=== PATIENT | female | born 1985 | race Caucasian/White ===

== ENCOUNTER → 2016-09-24 | Outpatient (CLI) | payer OTHER ==
[~2016-09-24] MED LIST: CRG125 PO; CYCL10TA6 PO; IMT100 PO; LSX20 PO; NORT10CA PO; PEDICHW44 PO; PRZ/40 PO; TRAZ50TA35 PO
== END | disposition home or self-care (01) ==
LOC: C.PAPS 10:11
PROVIDERS: ATTEND Obstetrics & Gynecology
DX: R87.610 Atypical squamous cells of undetermined significance on cytologic smear of cervix (ASC-US) (principal)

== ENCOUNTER → 2017-05-18 | Outpatient (CLI) | payer OTHER ==
[2017-05-18 17:31] LABS: BASO % 0.1 %; BASO ABS # 0.01 K/uL (0-0.2); COMPLETE YES; EOS % 1.5 %; IG% 0.3 %; LYMPH % 37.8 %; LYMPH ABS # 3.33 K/uL (1.2-3.4); MEAN CELL VOLUME 89.2 fL (80-100); MEAN CORPUSCULAR HGB CONC 34.8 g/dl (32-36); MEAN PLATELET VOLUME 9.3 fL (7.4-10.4); MONO % 4.2 %; NEUT % 56.1 %; PLATELET COUNT 210 K/uL (130-400); RED BLOOD COUNT 4.71 M/uL (4.2-5.4); WHITE BLOOD COUNT 8.81 K/uL (4.8-10.8)
[2017-05-18 17:41] LABS: INR 0.9 (0.9-1.1); PARTIAL THROMBOPLASTIN RATIO 1.1
[2017-05-18 17:59] LABS: BLOOD UREA NITROGEN 12 mg/dl (7-18); CREATININE 0.74 mg/dl (0.60-1.20); GLUCOSE 106 mg/dl (70-99)
[2017-05-18 18:00] LABS: BUN/CREATININE RATIO 15.9 (10-20); CALCIUM 8.8 mg/dl (8.5-10.1); CARBON DIOXIDE 28 mmol/L (21-32); CHLORIDE 109 mmol/L (98-107); POTASSIUM 4.2 mmol/L (3.5-5.1); SODIUM 144 mmol/L (136-145)
== END | disposition home or self-care (01) ==
LOC: C.LAB 16:58
PROVIDERS: ATTEND Family Medicine
DX: R23.8 Other skin changes (principal)

== ENCOUNTER 2017-06-11 14:54 | Observation (INO) | payer OTHER ==
[~2017-06-11] VITALS: Ht 172.7 cm; Wt 96.2 kg
[~2017-06-11 14:54] MED LIST changes: -CRG125 PO; -CYCL10TA6 PO; -IMT100 PO; -LSX20 PO; -PEDICHW44 PO
--- NOTE | 2017-06-11 15:26 | EMERGENCY ROOM VISIT NOTE ---
History First contact with patient: 15:01 Chief Complaint: HYPERTENSION Stated Complaint: HIGH BLOOD PRESSURE;DIZZY History of Present Illness The patient is a 32 year old female who presents to the Emergency Room With complaints of"high blood pressure/dizzy". The patient states that 20 minutes prior to arrival she was in the lab, and felt a sudden onset of dizziness, and left arm tingling sensation. She states that they checked her blood pressure and it was found to be elevated at 178/115, and 176/118 respectively. She states that she also has a headache in the frontal portion of her head. She doesn't that earlier in the day she did have a 8 sensation of pain between her shoulder blades. She states that she had this one other time but it did not hospitalist nocturnist physician to be anything. She has a history of fibromuscular dysplasia, and has a history of bilateral renal artery stenosis with stent placement performed and [facility]. She states that she also had initial shortness of breath but now her only remaining symptom is that of weakness generalized, and left arm tingly sensation. Her father has a significant history of SC, as well as her mother does have a significant cardiac history. She states that she takes her blood pressure medication regularly and is in the systolic 120s status post the surgery with the renal artery stenosis. She has been taking these as prescribed. She currently denies any chest pain. She denies any chance premises. There is been no speech or identifiable extremity weakness. Review of Systems A complete 10-point Review of Systems was discussed with the patient, with pertinent positives and negatives listed in the History of Present Illness. All remaining Review of Systems questions can be considered negative unless otherwise specified. Past Medical/Surgical History Medical Problems: (1) Ablation (2) Benign hypertension (3) Cholecystectomy (4) Hypertensive urgency (5) Kidney Catheter 2010 (6) Kidney stone (7) Polycystic Ovary Family History Diabetes mellitus FH: cancer FH: gallbladder disease FH: heart disease FH: lung disease Hypertension Kidney disease Kidney stones Seizures Social History Smoking Status: Never Smoker Alcohol Use: occasionally Drug Use: none Marital Status: Housing Status: lives with family Occupation Status: employed Current/Historical Medications Scheduled Aspirin (Aspirin EC Low Dose), 81 MG PO DAILY Carvedilol (Carvedilol), 12.5 MG PO BID Clopidogrel Bisulfate (Clopidogrel), 75 MG PO DAILY Cyclobenzaprine Hcl (Flexeril), 5 MG PO TID Pediatric Multiple Vitamins W/ (Flintstones Plus Iron), 1 TAB PO DAILY Sertraline HCl (Sertraline HCl), 100 MG PO DAILY Topiramate (Topamax), 50 MG PO HS Triamcinolone Acetonide (Topic (Triamcinolone Acet 0.025%), 1 APPLN TOP BID Scheduled PRN Albuterol Hfa (Ventolin Hfa), 2 PUFFS INH Q6H PRN for SOB/Wheezing Furosemide (Furosemide), 20 MG PO DAILY PRN for Fluid Retention Ondansetron Hcl (Zofran), 8 MG PO TID PRN for Nausea or Vomiting Sumatriptan Succinate (Imitrex), 100 MG PO UD PRN for Migraine Physical Exam Vital Signs Date Time Temp Pulse Resp B/P (MAP) Pulse Ox O2 Delivery O2 Flow Rate FiO2 06/11/17 20:32 72 170/109 97 Room Air 06/11/17 20:01 69 147/108 97 06/11/17 19:58 162/92 06/11/17 19:31 69 18 143/102 98 Room Air 06/11/17 19:20 71 18 147/103 98 Room Air 06/11/17 19:20 72 18 147/103 99 Room Air 06/11/17 18:19 68 20 99 06/11/17 18:11 69 20 145/93 100 Room Air 06/11/17 18:10 145/93 06/11/17 18:04 85 17 06/11/17 17:49 70 25 98 06/11/17 17:34 69 20 100 06/11/17 17:31 160/105 06/11/17 17:19 67 19 100 06/11/17 17:04 67 25 97 06/11/17 17:01 162/90 06/11/17 16:49 61 20 97 06/11/17 16:34 60 19 97 06/11/17 16:29 61 20 136/86 96 Room Air 06/11/17 15:59 67 26 139/79 95 Room Air 06/11/17 15:44 78 21 153/81 97 Room Air 06/11/17 15:12 98 Room Air 06/11/17 15:09 71 06/11/17 15:04 74 16 187/130 99 Room Air 06/11/17 14:59 36.6 73 18 192/118 99 Room Air Physical Exam VITAL SIGNS - Vital signs and nursing notes were reviewed. Stable. GENERAL - 32-year-old female appearing her stated age who is in no acute distress. Communicates well with provider and answers questions appropriately. SKIN - Without rashes. No petechial rashes. HEAD - NC/AT. EYES - PERRL with EOMI bilaterally. Sclera anicteric.No hyphema. EARS - No deformities of external structures noted on gross examination bilaterally. NOSE - Midline and without cyanosis. No epistaxis or purulent drainage noted. MOUTH/OROPHARYNX - Without perioral cyanosis. NECK - Neck with FROM. Supple to palpation. No lymphadenopathy noted. No nuchal rigidity. LUNGS - Chest wall symmetric without accessory muscle use, intercostals retractions, or central cyanosis. Normal vesicular breath sounds CTA B/L. No wheezes, rales, or rhonchi appreciated. CARDIAC - RRR with S1/S2. No murmur, rubs, or gallops appreciated. EXTREMITIES - No clubbing or peripheral cyanosis. No pretibial edema present. + 5/5 strength noted in UE/LE bilaterally. NEUROLOGIC - Cranial nerves II through XII grossly intact. Sensory intact to light touch throughout. PSYCH - A&O, and cooperates fully with examiner. Pt is very pleasant and interacts well with examiner. Medical Decision & Procedures ER Provider Diagnostic Interpretation: CHEST ONE VIEW PORTABLE CLINICAL HISTORY: Atypical chest pain COMPARISON STUDY: 07/01/2016 FINDINGS: There is a stable opacity at the level of the right cardiophrenic angle. This likely represents focal elevation/eventration right hemidiaphragm. There is no failure. There is no focal pulmonary consolidation. There are no pleural effusions. IMPRESSION: 1. Stable focal eventration/elevation right hemidiaphragm 2. No acute findings. Electronically signed by: Barron Martinez M.D. 06/11/2017 3:33 PM Dictated Date/Time: 06/11/2017 3:32 PM HEAD WITHOUT CONTRAST (CT) CT DOSE: HISTORY: Mental status change FMD, headache TECHNIQUE: Multiaxial CT images of the head were performed without the use of intravenous contrast. A dose lowering technique was utilized adhering to the principles of ALARA. Comparison: 07/01/2016 Findings: The paranasal sinuses and mastoid air cells are clear. The calvarium and skull base are intact. The ventricles and sulci are within normal limits. There is no mass, hematoma, midline shift, or acute infarct. Impression: No acute intracranial abnormality. The above report was generated using voice recognition software. It may contain grammatical, syntax or spelling errors. Electronically signed by: Allan Zaldivar M.D. 06/11/2017 6:45 PM Dictated Date/Time: 06/11/2017 6:44 PM (CHEST FOR PE) ANGIO WITH CT DOSE: HISTORY: Chest pain dyspnea TECHNIQUE: Multiaxial CT images of the chest were performed following the intravenous administration of contrast to evaluate the pulmonary arteries. Maximal intensity projection images were also obtained. A dose lowering technique was utilized adhering to the principles of ALARA. COMPARISON STUDY: None. FINDINGS: There is a normal caliber thoracic aorta with no evidence for dissection. There is no evidence for pulmonary embolus. No pleural effusions. No pneumothorax. The liver and spleen are unremarkable. No mediastinal or hilar lymphadenopathy. The central airways are patent. The lungs are clear. IMPRESSION: No evidence for pulmonary embolus. The lungs are clear. Negative thoracic aorta. The above report was generated using voice recognition software. It may contain grammatical, syntax or spelling errors. Electronically signed by: Allan Zaldivar M.D. 06/11/2017 6:54 PM Dictated Date/Time: 06/11/2017 6:52 PM ANGIO ABD/PELVIS WITH CONTRAST CLINICAL HISTORY: Dyspnea Chest pain TECHNIQUE: Transaxial acquisition with multi axial reformatted images COMPARISON STUDY: 02/22/2014 FINDINGS: Negative study of the abdominal and pelvic arterial vasculature. No evidence for aneurysm or dissection. Bowel pattern is nonobstructive. Mild chronic sigmoid diverticulosis. Bowel pattern is nonobstructive. The appendix is normal. Liver spleen and pancreas are unremarkable. Kidneys negative for hydronephrosis. IMPRESSION: 1. Negative CTA of the abdominal and pelvic arterial vasculature. 2. No evidence for aneurysm or dissection. 3. Mild chronic sigmoid diverticulosis. 4. Study is otherwise negative. 5. Incidental note is made of a 2.5 cm right ovarian cyst. The above report was generated using voice recognition software. It may contain grammatical, syntax or spelling errors. Electronically signed by: Allan Zaldivar M.D. 06/11/2017 6:58 PM Dictated Date/Time: 06/11/2017 6:54 PM Laboratory Results 06/11/17 15:45 Red Blood Count 4.98, Mean Corpuscular Volume 88.2, Mean Corpuscular Hemoglobin 29.9, Mean Corpuscular Hemoglobin Concent 33.9, Mean Platelet Volume 9.5, Neutrophils (%) (Auto) 54.7, Lymphocytes (%) (Auto) 38.4, Monocytes (%) (Auto) 5.4, Eosinophils (%) (Auto) 1.1, Basophils (%) (Auto) 0.2, Neutrophils # (Auto) 3.59, Lymphocytes # (Auto) 2.51, Monocytes # (Auto) 0.35, Eosinophils # (Auto) 0.07, Basophils # (Auto) 0.01 06/11/17 15:45 Test 06/11/17 15:45 06/11/17 17:09 06/11/17 17:58 White Blood Count 6.54 K/uL (4.8-10.8) Red Blood Count 4.98 M/uL (4.2-5.4) Hemoglobin 14.9 g/dL (12.0-16.0) Hematocrit 43.9 % (37-47) Mean Corpuscular Volume 88.2 fL (80-100) Mean Corpuscular Hemoglobin 29.9 pg (25-34) Mean Corpuscular Hemoglobin Concent 33.9 g/dl (32-36) Platelet Count 213 K/uL (130-400) Mean Platelet Volume 9.5 fL (7.4-10.4) Neutrophils (%) (Auto) 54.7 % Lymphocytes (%) (Auto) 38.4 % Monocytes (%) (Auto) 5.4 % Eosinophils (%) (Auto) 1.1 % Basophils (%) (Auto) 0.2 % Neutrophils # (Auto) 3.59 K/uL (1.4-6.5) Lymphocytes # (Auto) 2.51 K/uL (1.2-3.4) Monocytes # (Auto) 0.35 K/uL (0.11-0.59) Eosinophils # (Auto) 0.07 K/uL (0-0.5) Basophils # (Auto) 0.01 K/uL (0-0.2) RDW Standard Deviation 40.1 fL (36.4-46.3) RDW Coefficient of Variation 12.6 % (11.5-14.5) Immature Granulocyte % (Auto) 0.2 % Immature Granulocyte # (Auto) 0.01 K/uL (0.00-0.02) Prothrombin Time 10.1 SECONDS (9.0-12.0) Prothromb Time International Ratio 0.9 (0.9-1.1) Activated Partial Thromboplast Time 29.9 SECONDS (21.0-31.0) Partial Thromboplastin Ratio 1.2 Anion Gap 8.0 mmol/L (3-11) Est Creatinine Clear Calc Drug Dose 178.9 ml/min Estimated GFR () 137.8 Estimated GFR (Non- 118.9 BUN/Creatinine Ratio 12.7 (10-20) Calcium Level 8.6 mg/dl (8.5-10.1) Magnesium Level 2.0 mg/dl (1.8-2.4) Total Bilirubin 0.5 mg/dl (0.2-1) Aspartate Amino Transf (AST/SGOT) 13 U/L (15-37) Alanine Aminotransferase (ALT/SGPT) 29 U/L (12-78) Alkaline Phosphatase 95 U/L (45-117) Total Creatine Kinase 191 U/L (26-192) Creatine Kinase MB 6.1 ng/ml (0.5-3.6) Creatine Kinase MB Ratio 3.2 (0-3.0) Total Protein 6.8 gm/dl (6.4-8.2) Albumin 3.4 gm/dl (3.4-5.0) Globulin 3.4 gm/dl (2.5-4.0) Albumin/Globulin Ratio 1.0 (0.9-2) Thyroid Stimulating Hormone (TSH) 1.020 uIu/ml (0.300-4.500) Lyme Disease IgG Antibody NEG (NEG) Troponin I < 0.015 ng/ml (0-0.045) Human Chorionic Gonadotropin, Qual NEG (NEG) Urine Color YELLOW Urine Appearance CLEAR (CLEAR) Urine pH 5.5 (4.5-7.5) Urine Specific Energy 1.029 (1.000-1.030) Urine Protein NEG (NEG) Urine Glucose (UA) NEG (NEG) Urine Ketones NEG (NEG) Urine Occult Blood NEG (NEG) Urine Nitrite NEG (NEG) Urine Bilirubin NEG (NEG) Urine Urobilinogen NEG (NEG) Urine Leukocyte Esterase NEG (NEG) Urine Test NEG (NEG) Medications Administered Medications (Trade) Dose Ordered Sig/Danae Route Start Time Stop Time Status Last Admin Dose Admin Acetaminophen (Tylenol Tab) 500 mg NOW STAT PO 06/11/17 17:01 06/11/17 17:02 DC 06/11/17 17:08 500 MG Labetalol HCl (Normodyne IV) 10 mg NOW STAT IV 06/11/17 19:26 06/11/17 19:27 DC 06/11/17 19:39 10 MG Carvedilol (Coreg Tab) 12.5 mg BID PO 06/11/17 21:00 07/11/17 20:59 06/11/17 22:17 12.5 MG Doxycycline Hyclate (Vibramycin Cap) 100 mg BID PO 06/11/17 21:00 06/21/17 20:59 06/11/17 22:17 100 MG Medical Decision Patient was seen and evaluated as above. After obtaining a thorough history and physical examination IV access was initiated, and the above workup was performed. Bedside EKG reveals normal sinus rhythm. No ectopy or ischemic change. No evidence of ST segment elevation myocardial infarction. Chest x- ray was obtained, and is stable compared to previous. CBC reveals no concern of leukocytosis or anemia. Coags normal. Metabolic panel reveals chloride high at 109, AST low at 13, CK-MB high at 6.1. Troponins negative 2. HCG negative. TSH normal. Urine is negative. Patient Lyme IgM positive. Bands testing pending. She was given Tylenol for her headache. I did consult the on- call [facility] process control programmer, who recommended arterial evaluation of the chest and abdomen secondary to history of fibro muscular dysplasia. This was obtained as well as a noncontrasted CT scan of the patient's head. These were essentially unremarkable. Patient was given labetalol, and was still found to be hypertensive. I believe that further evaluation inpatient setting is warranted secondary to her hypertensive urgency. Case was discussed with the attending physician, the patient was admitted for further evaluation and management. Please refer to further documentation regarding her stay. In evaluation treatment this patient following differential diagnoses were entertained: SC, PE, costochondritis, pericarditis, fibro muscular dysplasia arterial compromise, among others. Impression Primary Impression: Hypertensive urgency Departure Information Dispostion Admitted as an inpatient Condition FAIR Prescriptions Triamcinolone Acetonide (Topic (TRIAMCINOLONE ACET 0.025%) 0.025 % Oin 1 APPLN TOP BID, #30 GM 1 Refill Prov: Benja Gonsales MD 06/11/17 Albuterol Hfa (VENTOLIN HFA) 200 Puffs/02008 Mcg Aers 2 PUFFS INH Q6H Y for SOB/Wheezing, #1 INHALER Prov: Benja Gonsales MD 06/11/17 Ondansetron Hcl (ZOFRAN) 8 Mg Tab 8 MG PO TID Y for Nausea or Vomiting, #30 TAB Prov: Benja Gonsales MD 06/11/17 Topiramate (TOPAMAX) 50 Mg Tab 50 MG PO HS, #30 TAB Prov: Benja Gonsales MD 06/11/17 Aspirin (Aspirin EC Low Dose) 81 Mg Ectab 81 MG PO DAILY, #30 Prov: Benja Gonsales MD 06/11/17 Cyclobenzaprine Hcl (FLEXERIL) 5 Mg Tab 5 MG PO TID for MUSCLE SPASMS, #30 TAB PRN Prov: Benja Gonsales MD 06/11/17 Sertraline HCl (Sertraline HCl) 100 Mg Tab 100 MG PO DAILY, #30 Prov: Benja Gonsales MD 06/11/17 Sumatriptan Succinate (IMITREX) 100 Mg Tab 100 MG PO UD Y for Migraine, #10 TAKE HALF A TABLET AT ONSET OF MIGRAINE, MAY REPEAT AFTER 2 HOURS IF NEEDED. MAXIMUM 2 DOSES PER DAY. Prov: Benja Gonsales MD 06/11/17 Referrals Ino Rey M.D. ([facility]) (PCP) Patient Instructions My [facility]
--- NOTE | 2017-06-11 15:34 | DIAGNOSTIC IMAGING REPORT ---
CHEST ONE VIEW PORTABLE CLINICAL HISTORY: Atypical chest pain COMPARISON STUDY: 07/01/2016 FINDINGS: There is a stable opacity at the level of the right cardiophrenic angle. This likely represents focal elevation/eventration right hemidiaphragm. There is no failure. There is no focal pulmonary consolidation. There are no pleural effusions. IMPRESSION: 1. Stable focal eventration/elevation right hemidiaphragm 2. No acute findings. Electronically signed by: Barron Martinez M.D. 06/11/2017 3:33 PM Dictated Date/Time: 06/11/2017 3:32 PM
[2017-06-11 15:56] LABS: BASO % 0.2 %; BASO ABS # 0.01 K/uL (0-0.2); COMPLETE YES; EOS % 1.1 %; HEMATOCRIT 43.9 % (37-47); IG% 0.2 %; LYMPH % 38.4 %; LYMPH ABS # 2.51 K/uL (1.2-3.4); MEAN CELL VOLUME 88.2 fL (80-100); MEAN CORPUSCULAR HEMOGLOBIN 29.9 pg (25-34); MEAN CORPUSCULAR HGB CONC 33.9 g/dl (32-36); MEAN PLATELET VOLUME 9.5 fL (7.4-10.4); MONO % 5.4 %; NEUT % 54.7 %; PLATELET COUNT 213 K/uL (130-400); RED BLOOD COUNT 4.98 M/uL (4.2-5.4); WHITE BLOOD COUNT 6.54 K/uL (4.8-10.8)
[2017-06-11 16:05] LABS: INR 0.9 (0.9-1.1); PARTIAL THROMBOPLASTIN RATIO 1.2; PROTHROMBIN TIME (PATIENT) 10.1 SECONDS (9.0-12.0)
[2017-06-11] MEDS ORDERED: PLV75 PO (16:08)
[2017-06-11] MEDS ORDERED: ZLF/50 PO (16:08)
[2017-06-11 16:16] LABS: ALT/SGPT 29 U/L (12-78); AST/SGOT 13 U/L (15-37); BLOOD UREA NITROGEN 8 mg/dl (7-18); BUN/CREATININE RATIO 12.7 (10-20); CALCIUM 8.6 mg/dl (8.5-10.1); CARBON DIOXIDE 26 mmol/L (21-32); CHLORIDE 109 mmol/L (98-107); GLUCOSE 89 mg/dl (70-99); SODIUM 143 mmol/L (136-145)
[2017-06-11 16:27] LABS: ALKALINE PHOSPHATASE 95 U/L (45-117); CKMB/CK RATIO 3.2 (0-3.0)
[2017-06-11 16:50] LABS: LYME DISEASE AB IGG NEG (NEG)
[2017-06-11 16:52] LABS: LYME DISEASE AB IGM POS (NEG)
[2017-06-11] MEDS ORDERED: ACETAMINOPHEN 500 MG TAB PO STA (17:01)
[2017-06-11] MEDS ORDERED: LSX20 PO (17:07)
[2017-06-11] MEDS ORDERED: CRG125 PO (17:07)
[2017-06-11] MEDS ORDERED: CYCL10TA6 PO (17:10)
[2017-06-11] MEDS ORDERED: PEDICHW44 PO (17:10)
[2017-06-11 17:56] LABS: PREG INTERNAL NEGATIVE QC NEG CLEAR BACKGROUND; PREG INTERNAL POSITIVE QC POS CONTROL LINE
[2017-06-11] MEDS ORDERED: IMT100 PO ×2 (18:21→21:05)
[2017-06-11 18:27] LABS: URINE APPEARANCE CLEAR (CLEAR); URINE BILIRUBIN NEG (NEG); URINE COLOR YELLOW; URINE NITRITE NEG (NEG); URINE PH 5.5 (4.5-7.5); URINE SPECIFIC GRAVITY 1.029 (1.000-1.030); UROBILINOGEN NEG (NEG); ZZUR CULT IF INDIC CLEAN CATCH NO
[2017-06-11 18:28] LABS: MANUAL MICROSCOPIC REQUIRED? NO; REVIEW REQ? NO
[2017-06-11] MEDS ORDERED: OPTIRAY 320 IV PRN (18:30)
--- NOTE | 2017-06-11 18:49 | DIAGNOSTIC IMAGING REPORT ---
HEAD WITHOUT CONTRAST (CT) CT DOSE: HISTORY: Mental status change FMD, headache TECHNIQUE: Multiaxial CT images of the head were performed without the use of intravenous contrast. A dose lowering technique was utilized adhering to the principles of ALARA. Comparison: 07/01/2016 Findings: The paranasal sinuses and mastoid air cells are clear. The calvarium and skull base are intact. The ventricles and sulci are within normal limits. There is no mass, hematoma, midline shift, or acute infarct. Impression: No acute intracranial abnormality. The above report was generated using voice recognition software. It may contain grammatical, syntax or spelling errors. Electronically signed by: Allan Zaldivar M.D. 06/11/2017 6:45 PM Dictated Date/Time: 06/11/2017 6:44 PM
--- NOTE | 2017-06-11 18:55 | DIAGNOSTIC IMAGING REPORT ---
(CHEST FOR PE) ANGIO WITH CT DOSE: HISTORY: Chest pain dyspnea TECHNIQUE: Multiaxial CT images of the chest were performed following the intravenous administration of contrast to evaluate the pulmonary arteries. Maximal intensity projection images were also obtained. A dose lowering technique was utilized adhering to the principles of ALARA. COMPARISON STUDY: None. FINDINGS: There is a normal caliber thoracic aorta with no evidence for dissection. There is no evidence for pulmonary embolus. No pleural effusions. No pneumothorax. The liver and spleen are unremarkable. No mediastinal or hilar lymphadenopathy. The central airways are patent. The lungs are clear. IMPRESSION: No evidence for pulmonary embolus. The lungs are clear. Negative thoracic aorta. The above report was generated using voice recognition software. It may contain grammatical, syntax or spelling errors. Electronically signed by: Allan Zaldivar M.D. 06/11/2017 6:54 PM Dictated Date/Time: 06/11/2017 6:52 PM
--- NOTE | 2017-06-11 19:00 | DIAGNOSTIC IMAGING REPORT ---
ANGIO ABD/PELVIS WITH CONTRAST CLINICAL HISTORY: Dyspnea Chest pain TECHNIQUE: Transaxial acquisition with multi axial reformatted images COMPARISON STUDY: 02/22/2014 FINDINGS: Negative study of the abdominal and pelvic arterial vasculature. No evidence for aneurysm or dissection. Bowel pattern is nonobstructive. Mild chronic sigmoid diverticulosis. Bowel pattern is nonobstructive. The appendix is normal. Liver spleen and pancreas are unremarkable. Kidneys negative for hydronephrosis. IMPRESSION: 1. Negative CTA of the abdominal and pelvic arterial vasculature. 2. No evidence for aneurysm or dissection. 3. Mild chronic sigmoid diverticulosis. 4. Study is otherwise negative. 5. Incidental note is made of a 2.5 cm right ovarian cyst. The above report was generated using voice recognition software. It may contain grammatical, syntax or spelling errors. Electronically signed by: Allan Zaldivar M.D. 06/11/2017 6:58 PM Dictated Date/Time: 06/11/2017 6:54 PM
[2017-06-11] MEDS ORDERED: LABETALOL HCL IV 5 MG/ML 20ML IV STA (19:26)
[2017-06-11] MEDS ORDERED: ALUMINUM/MAGNESIUM/SIMETH (MAALOX MAX) 30 ML UDC PO PRN (21:00)
[2017-06-11] MEDS ORDERED: NITROGLYCERIN 0.4 MG SL PER TAB CHARGE SL PRN (21:00)
[2017-06-11] MEDS ORDERED: FUROSEMIDE 20 MG TAB PO PRN (21:00)
[2017-06-11] MEDS ORDERED: ONDANSETRON INJ 2 MG/ML 2 ML VIAL IV PRN (21:00)
[2017-06-11] MEDS ORDERED: CLONIDINE HCL 0.1 MG TAB PO PRN (21:00)
[2017-06-11] MEDS ORDERED: HydrALAZINE HCL 20 MG/ML VIAL IV. PRN (21:00)
[2017-06-11] MEDS ORDERED: MAGNESIUM HYDROXIDE SUSP 30 ML UDC PO PRN (21:00)
[2017-06-11] MEDS ORDERED: CYCL5TAB PO (21:05)
[2017-06-11] MEDS ORDERED: TRMO2580 TOP (21:05)
[2017-06-11] MEDS ORDERED: ONDA8TAB12 PO (21:05)
[2017-06-11] MEDS ORDERED: SERT1TAB92 PO (21:05)
[2017-06-11] MEDS ORDERED: VNTHFA/IN INH (21:05)
[2017-06-11] MEDS ORDERED: TOPI50TA24 PO (21:05)
[2017-06-11] MEDS ORDERED: ASPEC81 PO (21:05)
[2017-06-11] MEDS ORDERED: IV FLUIDS COMPLETED PRN (21:15)
[2017-06-11] MEDS ORDERED: ONDANSETRON 8 MG TAB PO PRN (21:15)
[2017-06-11] MEDS ORDERED: LABETALOL HCL IV 5 MG/ML 20ML IV PRN (21:15)
[2017-06-11] MEDS ORDERED: SUMATRIPTAN SUCC TAB 100 MG TAB PO PRN (21:15)
[2017-06-11] MEDS ORDERED: ALBUTEROL HFA 8 GM INHALER INH PRN (21:15)
[2017-06-11 21:57] VITALS: BP 169/112; PULSE 84; TEMP 36.8; O2SAT 97; Ht 172.7 cm; Wt 96.2 kg
[2017-06-11] MEDS ORDERED: TOPIRAMATE 25 MG TAB PO SCH (22:00)
[2017-06-11] MEDS: DOXYCYCLINE HYCLATE 100 MG CAP PO SCH (22:17)
[2017-06-11] MEDS: CARVEDILOL 12.5 MG TAB PO SCH (22:17)
[2017-06-11 23:00] VITALS: BP 143/86; PULSE 76; TEMP 36.6; O2SAT 97
[2017-06-11] MEDS: ACETAMINOPHEN 325 MG TAB PO PRN (23:10)
--- NOTE | 2017-06-11 23:15 | HISTORY & PHYSICAL EXAMINATION ---
DATE OF ADMISSION: 06/11/2017 CHIEF COMPLAINT: Hypertensive urgency. HISTORY OF PRESENT ILLNESS: This is a 32-year-old female with a past medical history significant for mild persistent asthma, migraine, ACEI intolerance, essential hypertension and history of fibromuscular dysplasia who presents with dizziness and sweating. 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 When her blood pressure was checked, it was high and was brought into the ER. Initially her systolic blood pressure was reading in the 190s. She was given a dose of labetalol and hydralazine. Blood pressure currently is running in the 140-170s range. She has had headaches when this happened, but currently her headaches are better. She denies any blurred visions. She is feeling some chest tightness.Denies any sore throat or any shortness of breath. No nausea, no vomiting and no abdominal pain. Her appetite is okay. Normal bowel and bladder movements. No blood in the stools. No blood in the urine. No black stools. She has some swelling in the lower extremities. She denies any PND. The patient, recently in January had surgery for renal artery stenosis in [place] and since her blood pressure was running okay at home she did not check her blood pressure for some time now. She admits that she snores loudly and at one point of time there was a plan for sleep study, but when they found out of renal artery stenosis sleep study was not done. The patient says, about a year ago, she had tick bite and she was treated for bull's-eye rash with doxycycline. Patient says she i always exposed to ticks. Her initial Lyme screen is IgM positive. Currently, she is resting comfortably. ALLERGIES: TO SULFA ANTIBIOTICS, LISINOPRIL, PENICILLIN, SINGULAIR,STADOL, TORADOL AND TRAMADOL. PAST MEDICAL HISTORY: As mentioned above. PAST SURGICAL HISTORY: Angio of renal veins bilateral in 2017, , EGD with biopsy and diagnostic laparoscopic cholecystectomy. MEDICATIONS: Currently the patient is on Coreg 12.5 mg p.o. b.i.d., aspirin 81 mg p.o. daily, Topamax 50 mg p.o. at bedtime, B complex vitamins, Plavix 75 mg p.o. daily, sumatriptan 100 mg at the onset of migraine, Zofran 8 mg p.o. 8 hours p.r.n., triamcinolone apply topically b.i.d., albuterol 2 puffs every 4 hours p.r.n., Zoloft 100 mg p.o. daily, Lasix 20 mg p.o. daily p.r.n. and cyclobenzaprine 5 mg p.o. t.i.d. p.r.n. FAMILY HISTORY: Mother has diabetes and heart disorder. Paternal grandfather has cancer. SOCIAL HISTORY: Single. She quit smoking in 2016; prior to that she smoked 1 pack a day for 14 years. Alcohol, rarely. No drug use. REVIEW OF SYMPTOMS: As per HPI. Rest of the review of symptoms is negative. PHYSICAL EXAMINATION: GENERAL: The patient is obese, not in distress. VITAL SIGNS: Temperature 36.6, pulse is 72, blood pressure 170/109 and oxygen 97% room air. HEENT: No pallor, no icterus. Pupils are equal, round and reactive to light. NECK: No JVD, no neck masses and no carotid bruits. CARDIOVASCULAR: S1, S2 heard. Regular rate and rhythm. No murmur, no gallop. RESPIRATORY SYSTEM: Normal AP diameter. No accessory muscle use. No wheezing, no crackles. ABDOMEN: Soft, bowel sounds are present, nontender. No distention. CENTRAL NERVOUS SYSTEM: Cranial nerves II-XII are grossly intact. Nonfocal. EXTREMITIES: Bilateral lower extremities; edema present, no erythema seen. LABORATORIES: WBC 6.5, hemoglobin 14.9, hematocrit 43.9 and platelets 213. Sodium 143, potassium 4, chloride 109, bicarbonate 26, BUN 8, creatinine 0.6, serum glucose 89, calcium 8.6, magnesium 2, total bilirubin 0.5, AST 13, ALT 29, alkaline phosphatase 95, total creatinine kinase 191, CK-MB 6.1, troponin I two sets less than 0.015. TSH is 1.02. hcg qualitative test negative. PT 10.1, INR 0.9 and PTT 29.9. Urinalysis is negative. Lyme screen; IgM antibody positive, IgG antibody negative. CT of the head; no acute intracranial abnormality seen. CT angiogram of the abdomen and pelvis; negative. CT of the abdomen and pelvis and pelvic arterial vasculature; no evidence for aneurysm or dissection. Mild chronic sigmoid diverticulosis; Incidental finding of 2.5 cm right ovarian cyst. CTA of the chest; no evidence of pulmonary embolism. Lungs are clear. Negative thoracic aorta. Chest x-ray; no acute findings. EKG; normal sinus rhythm with a rate of 66, no acute ST changes are seen. ASSESSMENT AND PLAN: This is a 32-year-old female, who presents with hypertensive urgency. 1. Hypertensive urgency. The patient has history of fibromuscular dysplasia. She has renal artery stenosis status post procedure and surgery done at [place] in January 2017. Currently, the patient's blood pressure is controlled with Coreg 12.5 mg p.o. b.i.d., at home. But presents with elevated blood pressure.Received IV labetalol and hydralazine in ER. Will continue home coreg and place on iv labetalol prn. consult cardiology for further recommendations. Closely monitor on the tele floor. 2. Fibromuscular dysplasia, renal artery stenosis, status post surgery recently art [place]. . CTA of the chest and CTA of the abdomen and pelvis are unremarkable. 3. Migraines, continue home medications. 4. Mild persistent asthma stable, albuterol p.r.n. 5. Lyme disease; the patient says she has exposure to ticks frequently and she was treated for Lyme disease last year when she had a bull's-eye rash. Right now, she does not recall any tick bite and no rash seen. A couple of weeks ago, she had cold and fever, but today she presented with sweating and initial Lyme screen IgM is positive and IgG is negative. Possible recurrent infection, we will start on p.o. doxycycline and consult ID for further recommendations. 5. Deep vein thrombosis prophylaxis, SCDs and TEDs for now. 6. Disposition: Observation on tele floor. Expect to discharge home and follow up with her family doctor. Level 1. Full code. MTDD
[2017-06-12 03:45] VITALS: BP 118/70; PULSE 69; TEMP 36.4; O2SAT 96
[2017-06-12 04:43] LABS: BASO % 0.1 %; BASO ABS # 0.01 K/uL (0-0.2); COMPLETE YES; EOS % 1.6 %; HEMATOCRIT 40.7 % (37-47); IG% 0.3 %; LYMPH % 40.8 %; LYMPH ABS # 3.01 K/uL (1.2-3.4); MEAN CELL VOLUME 88.3 fL (80-100); MEAN CORPUSCULAR HEMOGLOBIN 30.4 pg (25-34); MEAN CORPUSCULAR HGB CONC 34.4 g/dl (32-36); MEAN PLATELET VOLUME 9.3 fL (7.4-10.4); MONO % 6.5 %; NEUT % 50.7 %; PLATELET COUNT 182 K/uL (130-400); RED BLOOD COUNT 4.61 M/uL (4.2-5.4); WHITE BLOOD COUNT 7.38 K/uL (4.8-10.8)
[2017-06-12 04:59] LABS: BLOOD UREA NITROGEN 8 mg/dl (7-18); BUN/CREATININE RATIO 13.2 (10-20); CALCIUM 8.6 mg/dl (8.5-10.1); CARBON DIOXIDE 25 mmol/L (21-32); CHLORIDE 110 mmol/L (98-107); GLUCOSE 95 mg/dl (70-99); POTASSIUM 3.6 mmol/L (3.5-5.1); SODIUM 142 mmol/L (136-145)
[2017-06-12 05:04] LABS: CKMB/CK RATIO 3.1 (0-3.0)
[2017-06-12] MEDS: ACETAMINOPHEN 325 MG TAB PO PRN (06:14)
[2017-06-12 07:53] VITALS: BP 136/85; PULSE 71; TEMP 36.7; O2SAT 95
[2017-06-12] MEDS: TRIAMCINOLONE~ORDER AWAITING ACTION SCH ×3 (08:00→14:41)
[2017-06-12] MEDS: CARVEDILOL 12.5 MG TAB PO SCH (08:29)
[2017-06-12] MEDS: DOXYCYCLINE HYCLATE 100 MG CAP PO SCH (08:29)
[2017-06-12] MEDS: CYCLOBENZAPRINE HCL 5 MG TAB PO SCH ×2 (08:29→14:00)
[2017-06-12] MEDS ORDERED: CHLORTHALIDONE 25 MG TAB PO SCH (09:00)
[2017-06-12] MEDS ORDERED: CLOPIDOGREL BISULFATE 75 MG TAB PO SCH (09:00)
[2017-06-12] MEDS ORDERED: ASPIRIN 81 MG ECTAB PO SCH (09:00)
[2017-06-12] MEDS ORDERED: FLINTSTONES COMPLETE CHEWABLE TAB PO SCH (09:00)
[2017-06-12] MEDS ORDERED: SERTRALINE HCL 100 MG TAB PO SCH (09:00)
[2017-06-12] MEDS ORDERED: PERFLUTREN LIPID MICROSPHERE (DEFINITY) IV ONE (09:02)
--- NOTE | 2017-06-12 09:09 | CARDIOLOGY CONSULTATION ---
DATE OF CONSULTATION: 06/12/2017 REFERRING PHYSICIAN: Dr. Benja Gonsales. REASON FOR CONSULTATION: Hypertensive urgency. CHIEF COMPLAINT ON ADMISSION: Elevated blood pressure and dizzy. HISTORY OF PRESENT ILLNESS: Ms. Sung is a 32-year-old female who presented to the Emergency Department with an episode of dizziness while at work. The patient states she felt flushed and dizzy. Her blood pressure was assessed and found to be elevated and she was referred to the Emergency Department. 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 In the Emergency Department, she was noted to have markedly elevated blood pressure of 192/118. She was given a dose of 10 mg IV labetalol as well as her oral carvedilol. Her blood pressure subsequently improved. She noted some chest discomfort as well, which she attributes to acid reflux. She carries a history of renal artery stenosis secondary to fibromuscular dysplasia. The patient underwent balloon angioplasty in 2008 as well as repeat bilateral renal artery balloon angioplasty in January [address] Read at [facility]. She notes intolerance to amlodipine 9due to edema) and lisinopril (secondary to cough). Currently, treated with carvedilol and blood pressures have been well regulated at home. Denies any excessive sodium intake. Notes intermittent lower extremity edema primarily involving her right ankle. She attributes this to an old Achilles rupture injury. Blood pressure this morning has improved. She notes a headache involving the top of her cranium at this time. She carries a history of migraine. No chest discomfort or shortness of breath currently. Her Lyme screen was found to be positive in the Emergency Department. Denies any fever or chills. No recent tick bite or rash. REVIEW OF SYSTEMS: Pertinent positive noted above. A comprehensive 10-system review is otherwise negative. PAST MEDICAL HISTORY: 1. Hypertension, secondary to renal artery stenosis. 2. Fibromuscular dysplasia of the renal artery, status post balloon angioplasty 2008 and 2016. 3. Migraine headache. 4. Chronic localized edema. PAST SURGICAL HISTORY: 1. Bilateral renal arterial angioplasty in January 2017. 2. . 3. Renal angioplasty in 2008. FAMILY HISTORY: Mother with a history of coronary artery disease at 49 and father with coronary artery disease. SOCIAL HISTORY: Former tobacco use, quitting in 2015 with a [id number] history. She works in the lab at [employer]. She uses alcohol rarely. ALLERGIES: 1. SULFA ANTIBIOTICS. 2. LISINOPRIL. 3. PENICILLIN. 4. SINGULAIR. 5. STADOL. 6. TORADOL. 7. TRAMADOL. CURRENT OUTPATIENT MEDICATIONS: 1. Aspirin 81 mg daily. 2. Topamax 50 mg daily. 3. Plavix 75 mg daily. 4. Sumatriptan 100 mg as needed. 5. Zofran 8 mg every 8 hours as needed. 6. Albuterol 2 puffs every 4 hours as needed. 7. Zoloft 100 mg daily. 8. Lasix 20 mg daily as needed for edema. 9. Carvedilol 12.5 mg twice daily. 10. Flexeril 5 mg 3 times daily as needed for muscle spasm. LABORATORY DATA: White blood cell count 7.38, hemoglobin is 14.0, and platelet count is 182. Sodium 142, potassium is 3.6, and creatinine is 0.60. PT 10.1 and INR is 0.9. Sodium 142, potassium 3.6, chloride 110, CO2 is 25, BUN is 8, and creatinine is 0.60. Troponins are negative x3 sets. Initial CK-MB mildly elevated at 6.1. Repeat CK-MB 3.6. CT angiogram of the chest negative for dissection or aneurysm. No evidence of pulmonary embolus. CT of the abdomen and pelvis demonstrates patent renal arteries bilaterally. Film was reviewed with radiology via phone. Chest x-ray demonstrates focal eventration/elevation of the right hemidiaphragm. Otherwise, no acute findings, unchanged when compared to the prior study. Telemetry demonstrates sinus rhythm: No sustained dysrhythmias. PHYSICAL EXAMINATION: VITAL SIGNS: Initial blood pressure 192/118, blood pressure this a.m. 136/85, temperature is 36.7 degrees centigrade, pulse 71 beats per minute, respiratory rate is 18 breaths per minute, and SaO2 is 95% on room air. GENERAL: NAD, obese, awake, alert and oriented x3. HEENT: Mucous membranes are moist. No scleral icterus. Conjunctivae pink. NECK: Supple. There is no JVD, no HJR and no carotid bruit. HEART: Regular with a normal S1 and S2. There is no murmur, rub, or gallop. LUNGS: Clear without rales, rhonchi or wheeze. ABDOMEN: Soft and nontender. There is no rebound or guarding. Normal bowel sounds. EXTREMITIES: Warm and dry with trace pedal edema. NEUROLOGIC: Demonstrates no focal deficit. FINAL IMPRESSION: 1. A 32-year-old female admitted with hypertensive urgency and a history of bilateral renal artery stenosis related to fibromuscular dysplasia status post balloon angioplasty in January 2017. Blood pressure has improved with intravenous labetalol as well as oral dosing of carvedilol last evening. CT angiography of the abdomen and pelvis demonstrates patent renal arteries bilaterally. 2. Atypical chest discomfort with negative cardiac enzymes and nonischemic ECG. 3. Family history of premature coronary artery disease - mother. 4. Migraine headache. PLAN AND RECOMMENDATIONS: I had a long discussion with the patient regarding the natural history and pathophysiology or fibromuscular dysplasia and recent procedure. CAT scan suggests patent arteries bilaterally without significant stenosis. Recommend additional antihypertensive therapy at this time. The patient reports intolerance to amlodipine due to edema as well as lisinopril secondary to cough. Given her intermittent lower extremity edema, I am recommending chlorthalidone 25 mg daily. The patient does not recall any intolerance to this medication in the past. She will require followup basic metabolic panel within 1 week. Consider addition of ARB in the future. We discussed possible consultation with vascular for further evaluation of her fibromuscular dysplasia as an inpatient; however, the patient prefers to followup with Dr. Read at this time. We will continue to monitor blood pressure during hospitalization. Ultimately, the patient will require exercise stress testing for evaluation of atypical chest discomfort when blood pressure has stabilized; however, this likely will be performed in the outpatient setting. Thank you for allowing me to take part in the care of your patient. SHAYNE
--- NOTE | 2017-06-12 10:46 | ECHOCARDIOGRAM REPORT ---
*NOTICE TO RECEIVING [employer] This information is strictly Confidential and protected under [place] law. [place] law prohibits you from making any further disclosure of this information unless further disclosure is expressly permitted by the written consent of the person to whom it pertains or is authorized by law. A general authorization for the release of medical or other information is not sufficient for this purpose. Hospital accepts no responsibility if the information is made available to any other person, INCLUDING THE PATIENT. Interpretation Summary * Name: DARSHANA REY Study Date: 06/12/2017 08:38 AM BP: 136/85 mmHg * Patient Location: C.2T\S\S238\S\2 HR: 71 * : 1985 (M/d/yyyy) Gender: Female Height: 68 in * Age: 32 yrs Ethnicity: CA Weight: 212 lb * Ordering Physician: Benja Gonsales * Referring Physician: Self, Referred * Performed By: Cathi Bill RDCS * * Reason For Study: Chest pain * BSA: 2.1 m2 * The study was technically difficult. * Compared to prior study, there is no significant change. * -- Conclusions -- * Ejection Fraction = 60-65%. * The left ventricular wall motion is normal. * There is borderline concentric left ventricular hypertrophy. * Pulse wave TDI of the anterior and posterior mitral annulas demonstrates normal LV relaxation * No significant valvular pathology. Procedure Details * A complete two-dimensional transthoracic echocardiogram was performed (2D, M-mode, Doppler and color flow Doppler). * A contrast injection of Definity was performed to improve assessment of LV function. * Contrast was injected into an intravenous site in the right arm. * One vial of Definity ultrasound contrast was diluted in normal saline to a total volume of 10 ml. A total of '2' ml of solution was administered during imaging. * Lot # [id number] of Definity utilized for procedure. * Expiration date AUG 02. * The attending nurse who injected the contrast agent was Ashley Dial RN. Left Ventricle * The left ventricle is normal in size. * There is no thrombus. * There is borderline concentric left ventricular hypertrophy. * Ejection Fraction = 60-65%. * Left ventricular systolic function is normal. * The left ventricular wall motion is normal. Right Ventricle * The right ventricle is normal size. * The right ventricular systolic function is normal as assessed by tricuspid annular plane systolic excursion (TAPSE) (normal >1.5 cm). Atria * The left atrial size is normal. * Right atrial size is normal. * There is no evidence of atrial septal defect, but resolution does not allow assessment for a patent foramen ovale. Mitral Valve * The mitral valve is normal. * There is no mitral valve stenosis. * Significant mitral regurgitation is absent. Tricuspid Valve * The tricuspid valve is normal. * There is no tricuspid stenosis. * Significant tricuspid regurgitation is absent. Aortic Valve * The aortic valve is trileaflet. * Aortic stenosis is absent. * There is no significant aortic regurgitation. Pulmonic Valve * The pulmonary valve is not well seen, but the Doppler examination is normal without significant regurgitation or stenosis. Great Vessels * The aortic root and proximal ascending aorta are normal sized. Pericardium/Pleural * There is no pericardial effusion. Great Vessels * Normal inferior vena cava diameter and respiratory variation suggests normal central venous pressure. Left Ventricular Diastolic Function * Pulse wave TDI of the anterior and posterior mitral annulas demonstrates normal LV relaxation MMode 2D Measurements and Calculations IVSd 1.1 cm LVIDd 4.4 cm LVIDs 3.0 cm LVPWd 1.2 cm IVS/LVPW 0.95 FS 32.5 % EDV(Teich) 89.1 ml ESV(Teich) 34.7 ml EF(Teich) 61.0 % EDV(cubed) 86.9 ml ESV(cubed) 26.7 ml EF(cubed) 69.2 % LV mass(C)d 178.0 grams LV mass(C)dI 84.9 grams/m\S\2 SV(Teich) 54.3 ml SI(Teich) 25.9 ml/m\S\2 SV(cubed) 60.1 ml SI(cubed) 28.7 ml/m\S\2 Ao root diam 2.9 cm Ao root area 6.8 cm\S\2 ACS 2.2 cm LA dimension 3.0 cm asc Aorta Diam 2.7 cm LA/Ao 1.0 LVAd ap4 29.6 cm\S\2 LVLd ap4 7.2 cm EDV(MOD-sp4) 96.0 ml EDV(sp4-el) 103.7 ml LVAs ap4 17.2 cm\S\2 LVLs ap4 6.2 cm ESV(MOD-sp4) 37.8 ml ESV(sp4-el) 40.4 ml EF(MOD-sp4) 60.7 % EF(sp4-el) 61.0 % LVAd ap2 21.6 cm\S\2 LVLd ap2 7.0 cm EDV(MOD-sp2) 54.2 ml EDV(sp2-el) 56.3 ml LVAs ap2 11.7 cm\S\2 LVLs ap2 5.4 cm ESV(MOD-sp2) 20.1 ml ESV(sp2-el) 21.4 ml EF(MOD-sp2) 62.9 % EF(sp2-el) 62.0 % LVLd %diff -2.63 % EDV(MOD-bp) 74.1 ml LVLs %diff -13.78 % ESV(MOD-bp) 29.6 ml EF(MOD-bp) 60.1 % SV(MOD-sp4) 58.3 ml SI(MOD-sp4) 27.8 ml/m\S\2 SV(MOD-sp2) 34.1 ml SI(MOD-sp2) 16.3 ml/m\S\2 SV(MOD-bp) 44.6 ml SI(MOD-bp) 21.3 ml/m\S\2 SV(sp4-el) 63.3 ml SI(sp4-el) 30.2 ml/m\S\2 SV(sp2-el) 34.9 ml SI(sp2-el) 16.7 ml/m\S\2 Doppler Measurements and Calculations MV E max jared 93.1 cm/sec MV A max jared 56.8 cm/sec MV E/A 1.6 MV dec time 0.24 sec Ao V2 max 163.7 cm/sec Ao max PG 10.7 mmHg Ao max PG (full) 2.5 mmHg LV V1 max PG 8.2 mmHg LV V1 max 143.0 cm/sec PA V2 max 97.7 cm/sec PA max PG 3.8 mmHg PA acc slope 329.3 cm/sec\S\2 PA acc time 0.14 sec TR max jared 222.2 cm/sec PA pr(Accel) 14.0 mmHg
[2017-06-12 11:42] VITALS: BP 153/94; PULSE 76; TEMP 36.4; O2SAT 95
[2017-06-12] MEDS ORDERED: CALCIUM CARBONATE 500 MG CHEWABLE PO PRN (14:30)
[2017-06-12 15:39] VITALS: BP 157/101; PULSE 64; TEMP 37.1; O2SAT 97
--- NOTE | 2017-06-12 18:03 | Progress Note ---
Medicine Progress Note Date & Time of Visit: Jun 12, 2017 at 18:03 . Subjective Admitted last night with hypertensive urgency. BP's improved. Feels better. No chest pain or SOB. . Objective Last 8 Hrs Date Time Temp Pulse Resp B/P (MAP) Pulse Ox O2 Delivery O2 Flow Rate FiO2 06/12/17 16:00 Room Air 06/12/17 15:39 37.1 64 18 157/101 (119) 97 Room Air 06/12/17 12:00 Room Air 06/12/17 11:42 36.4 76 19 153/94 (113) 95 Room Air Physical Exam: General- no distress Neck- no JVD Lungs- clear Heart- RRR Abdomen- + BS, soft, nontender Extremities- trace pretibial edema Neuro- alert . Laboratory Results: Last 24 Hours Test 06/12/17 04:29 06/12/17 12:55 White Blood Count 7.38 K/uL Red Blood Count 4.61 M/uL Hemoglobin 14.0 g/dL Hematocrit 40.7 % Mean Corpuscular Volume 88.3 fL Mean Corpuscular Hemoglobin 30.4 pg Mean Corpuscular Hemoglobin Concent 34.4 g/dl Platelet Count 182 K/uL Mean Platelet Volume 9.3 fL Neutrophils (%) (Auto) 50.7 % Lymphocytes (%) (Auto) 40.8 % Monocytes (%) (Auto) 6.5 % Eosinophils (%) (Auto) 1.6 % Basophils (%) (Auto) 0.1 % Neutrophils # (Auto) 3.74 K/uL Lymphocytes # (Auto) 3.01 K/uL Monocytes # (Auto) 0.48 K/uL Eosinophils # (Auto) 0.12 K/uL Basophils # (Auto) 0.01 K/uL RDW Standard Deviation 41.2 fL RDW Coefficient of Variation 12.8 % Immature Granulocyte % (Auto) 0.3 % Immature Granulocyte # (Auto) 0.02 K/uL Sodium Level 142 mmol/L Potassium Level 3.6 mmol/L Chloride Level 110 mmol/L Carbon Dioxide Level 25 mmol/L Anion Gap 7.0 mmol/L Blood Urea Nitrogen 8 mg/dl Creatinine 0.60 mg/dl Est Creatinine Clear Calc Drug Dose 163.9 ml/min Estimated GFR () 137.8 Estimated GFR (Non- 118.9 BUN/Creatinine Ratio 13.2 Random Glucose 95 mg/dl Calcium Level 8.6 mg/dl Magnesium Level 2.0 mg/dl Total Creatine Kinase 118 U/L 115 U/L Creatine Kinase MB 3.6 ng/ml 3.5 ng/ml Creatine Kinase MB Ratio 3.1 3.0 Troponin I < 0.015 ng/ml < 0.015 ng/ml Assessment & Plan HYPERTENSIVE URGENCY 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 S/P balloon angioplasties of bilateral renal arteries 2008 and January 2017. Presented to ED with dizziness, chest discomfort, dyspnea, and BP's as high as 192 systolic and 130 diastolic. Received IV labetalol in ED with improvement. CTA of abdomen demonstrated patent renal arteries. Carvedilol continued. Cannot take JANICE inhibitors due to cough or amlodipine due to edema. Seen in consultation by Cardiology. Chlorthalidone added to her antihypertensive regimen. BMP should be checked at next clinic visit. CHEST DISCOMFORT / DYSPNEA Troponins neg x 4. Echo showed mild concentric LVH, no wall motion abnormalities. CTA negative for PE. Symptoms probably secondary to hypertensive urgency. Outpatient stress testing recommended once BP better controlled. VTE PROPHYLAXIS SCD's utilized. Ambulating. DISPOSITION Expected discharge to home. Family Medicine follow-up with Dr. Taylor. Cardiology follow-up with Dr. Ewing. . Current Inpatient Medications: Current Inpatient Medications Medications (Trade) Dose Ordered Sig/Danae Route Start Time Stop Time Status Last Admin Dose Admin Ioversol (Optiray 320) 100 ml UD PRN IV 06/11/17 18:30 06/15/17 18:29 Acetaminophen (Tylenol Tab) 650 mg Q4H PRN PO 06/11/17 21:00 07/11/17 20:59 06/12/17 06:14 650 MG Al Hydrox/Mg Hydrox/Simethicone (Maalox Max Susp) 15 ml Q4H PRN PO 06/11/17 21:00 07/11/17 20:59 Magnesium Hydroxide (Milk Of Magnesia Susp) 30 ml Q12H PRN PO 06/11/17 21:00 07/11/17 20:59 Ondansetron HCl (Zofran Inj) 4 mg Q6H PRN IV 06/11/17 21:00 07/11/17 20:59 Nitroglycerin (Nitrostat Tab) 0.4 mg UD PRN SL 06/11/17 21:00 07/11/17 20:59 Carvedilol (Coreg Tab) 12.5 mg BID PO 06/11/17 21:00 07/11/17 20:59 06/12/17 08:29 12.5 MG Clopidogrel Bisulfate (plAVix TAB) 75 mg DAILY PO 06/12/17 09:00 07/12/17 08:59 06/12/17 08:29 75 MG Furosemide (Lasix Tab) 20 mg DAILY PRN PO 06/11/17 21:00 07/11/17 20:59 Multivitamins (Flintstones Complete Tab) 1 tab QAM PO 06/12/17 09:00 07/12/17 08:59 06/12/17 08:29 1 TAB Doxycycline Hyclate (Vibramycin Cap) 100 mg BID PO 06/11/17 21:00 06/21/17 20:59 06/12/17 08:29 100 MG Albuterol (Ventolin Hfa Inhaler) 2 puffs Q6H PRN INH 06/11/17 21:15 07/11/17 21:14 Aspirin (Ecotrin Tab) 81 mg DAILY PO 06/12/17 09:00 07/12/17 08:59 06/12/17 08:29 81 MG Cyclobenzaprine HCl (Flexeril Tab) 5 mg TID PO 06/12/17 09:00 07/12/17 08:59 Ondansetron HCl (Zofran Tab) 8 mg TID PRN PO 06/11/17 21:15 07/11/17 21:14 Sertraline HCl (Zoloft Tab) 100 mg DAILY PO 06/12/17 09:00 07/12/17 08:59 06/12/17 08:29 100 MG Sumatriptan Succinate (Imitrex Tab) 100 mg UD PRN PO 06/11/17 21:15 07/11/17 21:14 Topiramate (Topamax Tab) 50 mg HS PO 06/11/17 22:00 07/11/17 21:59 06/11/17 22:17 50 MG Miscellaneous Information (Order Awaiting Action) 1 ea QS N/A 06/12/17 00:00 07/12/17 00:00 Labetalol HCl (Normodyne IV) 20 mg Q2H PRN IV 06/11/17 21:15 07/11/17 21:14 Miscellaneous (Iv Fluids Completed) 1 ea PRN PRN N/A 06/11/17 21:15 06/11/18 21:14 Chlorthalidone (Hygroton Tab) 25 mg QAM PO 06/12/17 09:00 07/12/17 08:59 06/12/17 10:45 25 MG Calcium Carbonate (Tums Chew Tab) 500 mg Q4H PRN PO 06/12/17 14:30 07/12/17 14:29 06/12/17 15:00 500 MG
[2017-06-12] MEDS ORDERED: HYG25 PO (18:08)
--- NOTE | 2017-06-12 18:11 | Discharge Instructions ---
Discharge Instructions Date of Service Jun 12, 2017. Admission Reason for Admission: elevated blood pressure . Discharge Discharge Diagnosis / Problem: elevated blood pressure Discharge Goals Goal(s): Improve disease control Activity Recommendations Activity Limitations: resume your previous activity . Instructions / Follow-Up Instructions / Follow-Up APPOINTMENTS: FAMILY MEDICINE 06/16/2017 11:20 AM Ino Rey MD INSTRUCTIONS: New medication for blood pressure and fluid retention: chlorthalidone (Hygroton) 25 mg every morning Seek medical attention if you have: * temperature above 101 * chest pain or trouble breathing * abdominal pain, nausea, vomiting * diarrhea, dark stools or bloody stools * any unanswered questions or concerns Call 911 if symptoms are severe. Call if you have any questions or problems. My cell # is [phone]. You can also reach a [facility] hospitalist on duty at [facility] 24 hours a day by calling [phone]. Please take good care of yourself. Bernard Clark . Current Hospital Diet Patient's current hospital diet: AHA Diet (Heart Healthy) Discharge Diet Recommended Diet: AHA Diet (Heart Healthy) Pending Studies Studies pending at discharge: no Medical Emergencies . Who to Call and When: Medical Emergencies: If at any time you feel your situation is an emergency, please call 911 immediately. . Non-Emergent Contact Non-Emergency issues call your: Primary Care Provider, Hospital Doctor . . "Provider Documentation" section prepared by Bernard Clark. . VTE Core Measure Inpt VTE Proph given/why not?: SCD's
[2017-06-12 18:14] VITALS: BP 157/101; PULSE 64; TEMP 37.1; O2SAT 97
--- NOTE | 2017-06-14 01:32 | Discharge Summary ---
Discharge Summary Date of Service Jun 14, 2017. Discharge Summary Admission Date: Jun 11, 2017 at 21:00 Discharge Date: Jun 12, 2017 Discharge Disposition: Home Principal Diagnosis: hypertensive urgency chest pain dyspnea . Secondary Diagnoses/Problems: Chronic and Resolved Medical Problems: (1) Fibromuscular dysplasia Status: Chronic (2) History of Lyme disease Status: Chronic (3) Hypertension Status: Chronic (4) Hypertension, renovascular Status: Chronic (5) Kidney stone Status: Resolved Surgical Problems: (1) Status post balloon angioplasty of renal arteries Permanent Comment: bilat 2008 + 2016 [facility] Status: Chronic (2) Status post cholecystectomy Permanent Comment: fibromuscular dysplasia, s/p bilat renal artery angioplasties [facility] 2016 Status: Chronic . Procedures: CTA chest CTA abdomen and pelvis echo . Consultations: Cardiology . Pending Studies/Follow-Up: Lyme Western blot pending at time of discharge. . Medication Reconciliation New Medications: Chlorthalidone (Chlorthalidone) 25 Mg Tab 25 MG PO DAILY, #30 TAB 5 Refills Continued Medications: Albuterol Hfa (Ventolin Hfa) 200 Puffs/47489 Mcg Aers 2 PUFFS INH Q6H PRN for SOB/Wheezing, #1 INHALER Aspirin (Aspirin EC Low Dose) 81 Mg Ectab 81 MG PO DAILY, #30 Carvedilol (Carvedilol) 12.5 Mg Tab 12.5 MG PO BID Clopidogrel Bisulfate (Clopidogrel) 75 Mg Tab 75 MG PO DAILY Cyclobenzaprine Hcl (Flexeril) 5 Mg Tab 5 MG PO TID for MUSCLE SPASMS, #30 TAB PRN Furosemide (Furosemide) 20 Mg Tab 20 MG PO DAILY PRN for Fluid Retention Ondansetron Hcl (Zofran) 8 Mg Tab 8 MG PO TID PRN for Nausea or Vomiting, #30 TAB Pediatric Multiple Vitamins W/ (Flintstones Plus Iron) 1 Chw Chw 1 TAB PO DAILY Sertraline HCl (Sertraline HCl) 100 Mg Tab 100 MG PO DAILY, #30 Sumatriptan Succinate (Imitrex) 100 Mg Tab 100 MG PO UD PRN for Migraine, #10 TAKE HALF A TABLET AT ONSET OF MIGRAINE, MAY REPEAT AFTER 2 HOURS IF NEEDED. MAXIMUM 2 DOSES PER DAY. Topiramate (Topamax) 50 Mg Tab 50 MG PO HS, #30 TAB Triamcinolone Acetonide (Topic (Triamcinolone Acet 0.025%) 0.025 % Oin 1 APPLN TOP BID, #30 GM 1 Refill Admission Information HPI (per Admitting provider): HISTORY OF PRESENT ILLNESS: This is a 32-year-old female with a past medical history significant for mild persistent asthma, migraine, ACEI intolerance, essential hypertension and history of fibromuscular dysplasia who presents with dizziness and sweating. 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 When her blood pressure was checked, it was high and was brought into the ER. Initially her systolic blood pressure was reading in the 190s. She was given a dose of labetalol and hydralazine. Blood pressure currently is running in the 140-170s range. She has had headaches when this happened, but currently her headaches are better. She denies any blurred visions. She is feeling some chest tightness.Denies any sore throat or any shortness of breath. No nausea, no vomiting and no abdominal pain. Her appetite is okay. Normal bowel and bladder movements. No blood in the stools. No blood in the urine. No black stools. She has some swelling in the lower extremities. She denies any PND. The patient, recently in January had surgery for renal artery stenosis in [place] and since her blood pressure was running okay at home she did not check her blood pressure for some time now. She admits that she snores loudly and at one point of time there was a plan for sleep study, but when they found out of renal artery stenosis sleep study was not done. The patient says, about a year ago, she had tick bite and she was treated for bull's-eye rash with doxycycline. Patient says she i always exposed to ticks. Her initial Lyme screen is IgM positive. Currently, she is resting comfortably. . Physical Exam (per Admitting): GENERAL: The patient is obese, not in distress. VITAL SIGNS: Temperature 36.6, pulse is 72, blood pressure 170/109 and oxygen 97% room air. HEENT: No pallor, no icterus. Pupils are equal, round and reactive to light. NECK: No JVD, no neck masses and no carotid bruits. CARDIOVASCULAR: S1, S2 heard. Regular rate and rhythm. No murmur, no gallop. RESPIRATORY SYSTEM: Normal AP diameter. No accessory muscle use. No wheezing, no crackles. ABDOMEN: Soft, bowel sounds are present, nontender. No distention. CENTRAL NERVOUS SYSTEM: Cranial nerves II-XII are grossly intact. Nonfocal. EXTREMITIES: Bilateral lower extremities; edema present, no erythema seen. . Hospital Course HYPERTENSIVE URGENCY 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 S/P balloon angioplasties of bilateral renal arteries 2008 and January 2017. Presented to ED with dizziness, chest discomfort, dyspnea, and BP's as high as 192 systolic and 130 diastolic. Received IV labetalol in ED with improvement. CTA of abdomen demonstrated patent renal arteries. Carvedilol continued. Cannot take JANICE inhibitors due to cough or amlodipine due to edema. Seen in consultation by Cardiology. Chlorthalidone added to her antihypertensive regimen. BMP should be checked at next clinic visit. CHEST DISCOMFORT / DYSPNEA Troponins neg x 4. Echo showed mild concentric LVH, no wall motion abnormalities. CTA negative for PE. Symptoms probably secondary to hypertensive urgency. Outpatient stress testing recommended once BP better controlled. HISTORY LYME DISEASE History of Lyme disease treated about 1 year ago. Lyme screen in ED + for IgM. Western blot pending. VTE PROPHYLAXIS SCD's utilized. Ambulating. DISPOSITION Expected discharge to home. Family Medicine follow-up with Dr. Taylor. Cardiology follow-up with Dr. Ewing. . HISTORY OF PRESENT ILLNESS: This is a 32-year-old female with a past medical history significant for mild persistent asthma, migraine, ACEI intolerance, essential hypertension and history of fibromuscular dysplasia who presents with dizziness and sweating. 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 When her blood pressure was checked, it was high and was brought into the ER. Initially her systolic blood pressure was reading in the 190s. She was given a dose of labetalol and hydralazine. Blood pressure currently is running in the 140-170s range. She has had headaches when this happened, but currently her headaches are better. She denies any blurred visions. She is feeling some chest tightness.Denies any sore throat or any shortness of breath. No nausea, no vomiting and no abdominal pain. Her appetite is okay. Normal bowel and bladder movements. No blood in the stools. No blood in the urine. No black stools. She has some swelling in the lower extremities. She denies any PND. The patient, recently in January had surgery for renal artery stenosis in [place] and since her blood pressure was running okay at home she did not check her blood pressure for some time now. She admits that she snores loudly and at one point of time there was a plan for sleep study, but when they found out of renal artery stenosis sleep study was not done. The patient says, about a year ago, she had tick bite and she was treated for bull's-eye rash with doxycycline. Patient says she i always exposed to ticks. Her initial Lyme screen is IgM positive. Currently, she is resting comfortably. . Discharge Instructions Date of Service Jun 12, 2017. Admission Reason for Admission: elevated blood pressure . Discharge Discharge Diagnosis / Problem: elevated blood pressure Discharge Goals Goal(s): Improve disease control Activity Recommendations Activity Limitations: resume your previous activity . Instructions / Follow-Up Instructions / Follow-Up APPOINTMENTS: FAMILY MEDICINE 06/16/2017 11:20 AM Ino Rey MD INSTRUCTIONS: New medication for blood pressure and fluid retention: chlorthalidone (Hygroton) 25 mg every morning Seek medical attention if you have: * temperature above 101 * chest pain or trouble breathing * abdominal pain, nausea, vomiting * diarrhea, dark stools or bloody stools * any unanswered questions or concerns Call 911 if symptoms are severe. Call if you have any questions or problems. My cell # is [phone]. You can also reach a [facility] hospitalist on duty at [facility] [address] 24 hours a day by calling [phone]. Please take good care of yourself. Bernard Clark . Current Hospital Diet Patient's current hospital diet: AHA Diet (Heart Healthy) Discharge Diet Recommended Diet: AHA Diet (Heart Healthy) Pending Studies Studies pending at discharge: no Medical Emergencies . Who to Call and When: Medical Emergencies: If at any time you feel your situation is an emergency, please call 911 immediately. . Non-Emergent Contact Non-Emergency issues call your: Primary Care Provider, Hospital Doctor . . "Provider Documentation" section prepared by Bernard Clark. . VTE Core Measure Inpt VTE Proph given/why not?: SCD's . Additional Copies To Maylin Taylor M.D. (MEDICAL); Lius Ewing, DO
[2017-06-18 07:18] LABS: 18KDIGG BAND NONREACTIVE (NONREACTIVE); 23KDIGG BAND NONREACTIVE (NONREACTIVE); 23KDIGM BAND REACTIVE (NONREACTIVE); 28KDIGG BAND NONREACTIVE (NONREACTIVE); 30KDIGG BAND NONREACTIVE (NONREACTIVE); 39KDIGG BAND NONREACTIVE (NONREACTIVE); 39KDIGM BAND NONREACTIVE (NONREACTIVE); 41KDIGG BAND NONREACTIVE (NONREACTIVE); 41KDIGM BAND REACTIVE (NONREACTIVE); 45KDIGG BAND NONREACTIVE (NONREACTIVE); 58KDIGG BAND NONREACTIVE (NONREACTIVE); 66KDIGG BAND NONREACTIVE (NONREACTIVE); 93KDIGG BAND NONREACTIVE (NONREACTIVE)
--- NOTE | 2017-06-23 11:57 | Medical Consult ---
Consultation Note Date of Service Jun 23, 2017. Consultation Note Infectious disease consultation was requested, but patient was discharged the next day prior to availability of consultation to be performed. Therefore no Infectious Disease consultation was performed.
== END 2017-06-12 18:45 | disposition home or self-care (01) ==
LOC: C.EDB 14:56 → C.2T 21:00 → ENRESERV 21:09
PROVIDERS: ADMIT Hospitalist; ATTEND Hospitalist
DX: I16.0 Hypertensive urgency (principal); I70.1 Atherosclerosis of renal artery; J45.30 Mild persistent asthma, uncomplicated; G43.909 Migraine, unspecified, not intractable, without status migrainosus; Z87.891 Personal history of nicotine dependence; Z79.02 Long term (current) use of antithrombotics/antiplatelets; Z79.82 Long term (current) use of aspirin; Z79.899 Other long term (current) drug therapy

== ENCOUNTER → 2017-08-27 | Outpatient (CLI) | payer OTHER ==
[~2017-08-27] MED LIST changes: +ASPEC81 PO; +CRG125 PO; +HYG25 PO; +IMT100 PO; +LSX20 PO; -NORT10CA PO; +PEDICHW44 PO; +PLV75 PO; -PRZ/40 PO; +SERT1TAB92 PO; -TRAZ50TA35 PO; +TRMO2580 TOP; +VNTHFA/IN INH
== END | disposition home or self-care (01) ==
LOC: C.LAB 17:33
PROVIDERS: ATTEND Family Medicine
DX: M79.1 Myalgia (principal)

== ENCOUNTER → 2017-09-09 | Outpatient (CLI) | payer OTHER | END | disposition home or self-care (01) | LOC: C.LAB1850 11:19 | PROVIDERS: ATTEND Internal Medicine Infectious Disease | DX: Z00.00 Encounter for general adult medical examination without abnormal findings (principal) ==

== ENCOUNTER → 2018-03-11 | Outpatient (CLI) | payer OTHER ==
[~2018-03-11] MED LIST changes: -ASPEC81 PO; +ASPI-320 PO; +CARV25TA2 PO; -CRG125 PO; +MULT1CHW18 PO; -PEDICHW44 PO; -SERT1TAB92 PO; -VNTHFA/IN INH
[2018-03-11 11:35] LABS: BLOOD UREA NITROGEN 11 mg/dl (7-18); CALCIUM 8.7 mg/dl (8.5-10.1); CARBON DIOXIDE 28 mmol/L (21-32); CHOLESTEROL 167 mg/dl (0-200); CREATININE 0.63 mg/dl (0.60-1.20); GLUCOSE 93 mg/dl (70-99); LDL CHOLESTEROL CALCULATED 98 mg/dl; POTASSIUM 3.7 mmol/L (3.5-5.1); SODIUM 141 mmol/L (136-145)
== END | disposition home or self-care (01) ==
LOC: C.LAB1850 09:41
PROVIDERS: ATTEND Physician Assistant
DX: I10 Essential (primary) hypertension (principal); E78.5 Hyperlipidemia, unspecified